=== PATIENT | female | born 1970 | race Two or more races ===

== ENCOUNTER → 2022-07-14 | Emergency (ER) | payer OTHER ==
[~2022-07-14] VITALS: Ht 170.2 cm; Wt 61.2 kg
[~2022-07-14] MED LIST: CARAFATE1 GM; CEPHALEXIN500 MG PO; CIPRO500 MG; KETO10TA2 PO; PYRIDIUM100 M1; TYLOPHEN500 MG
== END | disposition left against medical advice (07) ==
LOC: ER 01:46
DX: N32.0 Bladder-neck obstruction (principal); N13.30 Unspecified hydronephrosis; R10.9 Unspecified abdominal pain; R91.8 Other nonspecific abnormal finding of lung field